=== PATIENT | female | born 1930 | race Caucasian/White ===

== ENCOUNTER 2017-07-18 09:54 | Outpatient (CLI) | payer MEDICARE, OTHER | END 2017-07-18 23:59 | disposition home or self-care (01) | LOC: VAS 09:54 | PROVIDERS: ATTEND Physician Assistant | DX: M71.22 Synovial cyst of popliteal space [Baker], left knee (principal); J44.9 Chronic obstructive pulmonary disease, unspecified; Z87.891 Personal history of nicotine dependence | CPT/HCPCS: 93971 ==

== ENCOUNTER 2017-07-20 14:14 | Emergency (ER) | payer MEDICARE, OTHER ==
[~2017-07-20] VITALS: Ht 160 cm; Wt 48.0 kg
[2017-07-20 14:24] VITALS: BP 141/84
== END 2017-07-20 14:50 | disposition home or self-care (01) ==
LOC: ER 14:16
DX: M71.22 Synovial cyst of popliteal space [Baker], left knee (principal); M71.21 Synovial cyst of popliteal space [Baker], right knee; Z98.890 Other specified postprocedural states
CPT/HCPCS: 99281